=== PATIENT | male | born 1995 | race Caucasian/White ===

== ENCOUNTER 2018-10-11 23:25 | Emergency (ER) | payer BC ==
[2018-10-11] MEDS ORDERED: Diphtheria,Pertussis(Acell),Tetanus Vaccine 0.5 ML Syringe IM ONE (23:48)
--- NOTE | 2018-10-11 23:48 | EDM.PDOC ---
ED HPI GENERAL MEDICAL PROBLEM - General Chief Complaint: Laceration Stated Complaint: LEFT FINGER LACERATION Time Seen by Provider: 10/11/18 23:41 - History of Present Illness INITIAL COMMENTS - FREE TEXT/NARRATIVE: 23-year-old male presents emergency room with laceration on his left ring finger This occurred shortly before arrival the patient was cutting meat inadvertently cut the end of his finger. Patient has never had a tetanus shot as he was homeschooled. He denies any other injuries past medical history is unremarkable allergies: None Left Finger-Little Pain Score (Numeric/FACES): 5 - Related Data Allergies Allergy/AdvReac Type Severity Reaction Status Date / Time No Known Allergies Allergy Verified 10/11/18 23:49 Home Meds: Home Meds . [No Known Home Meds] 10/11/18 [History] ED ROS GENERAL - Review of Systems Review Of Systems: See Below Constitutional: Reports: No Symptoms Respiratory: Reports: No Symptoms Cardiovascular: Reports: No Symptoms GI/Abdominal: Reports: No Symptoms ED EXAM, SKIN/RASH Exam: See Below Exam Limited By: No Limitations General Appearance: Alert, No Apparent Distress Respiratory/Chest: No Respiratory Distress, Lungs Clear, Normal Breath Sounds Cardiovascular: Normal Peripheral Pulses, Regular Rate, Rhythm, No Edema, No Murmur Extremities: Other (Examination of his left hand shows a 1 cm laceration distal end of the pinky finger radial aspect from the nail extending to the palmar surface does not appear to be too deep it is having some bleeding.) ED SKIN PROCEDURES - Laceration/Wound Repair Left Digit - 5th (Baby) Lac/Wound length In cm: 1 Distal NVT: Neuro & Vascular Intact Anesthetic Type: Digital Local Anesthesia - Lidocaine (Xylocaine): 1% Plain Local Anesthetic Volume: 2cc Skin Prep: Chlorhexidine (Hibiciens), Saline Exploration/Debridement/Repair: Wound Explored, In a Bloodless Field, Explored to Base Closed with: Sutures Suture Size: 3-0 # of Sutures: 3 Suture Type: Nylon Tetanus Status Addressed: Yes (This is updated) Complications: No Progress/Comments: Patient tolerated procedure well no complications good wound approximation bleeding controlled Course - Vital Signs Last Recorded V/S: Last Vital Signs Temp 36.7 C 10/11/18 23:37 Pulse 74 10/11/18 23:37 Resp 18 10/11/18 23:37 BP 147/88 H 10/11/18 23:37 Pulse Ox 100 10/11/18 23:37 - Orders/Labs/Meds Orders: Active Orders 24 hr Category Date Time Status Vaccines to be Administered [RC] PER UNIT ROUTINE Care 10/11/18 23:48 Active Meds: Medications Discontinued Medications Generic Name Dose Route Start Last Admin Trade Name Norma PRN Reason Stop Dose Admin Diphtheria/Tetanus/Acell Pertussis 0.5 ml 10/11/18 23:48 Adacel IM 10/11/18 23:49 .ONCE ONE Lidocaine HCl 5 ml 10/11/18 23:48 Xylocaine-Mpf 1% INJECT 10/11/18 23:49 ONETIME ONE Lidocaine HCl Confirm 10/11/18 23:52 Xylocaine 1% Administered 10/11/18 23:53 Dose 10 ml .ROUTE .STK-MED ONE Lidocaine HCl 10 ml 10/11/18 23:54 Xylocaine 1% INJECT 10/11/18 23:55 ONETIME ONE Departure - Departure Time of Disposition: 00:18 Disposition: Home, Self-Care 01 Clinical Impression: Laceration of left little finger - Discharge Information Referrals: PCP,None [Primary Care Provider] - Forms: ED Department Discharge Additional Instructions: Return to the emergency room with any questions problems or concerns. Keep wound clean and dry for the next 48 hours after 48 hours he can let water gently rubbing the area gently dabbed dry wear the splint for at least one week. Suture removal in 12 days. Use great caution after the sutures are removed as to not catch the skin on something potentially tearing open. Return to emergency room with any signs symptoms or concerns of infection - My Orders Last 24 Hours: My Active Orders 10/11/18 23:48 Vaccines to be Administered [RC] PER UNIT ROUTINE - Assessment/Plan Last 24 Hours: My Active Orders 10/11/18 23:48 Vaccines to be Administered [RC] PER UNIT ROUTINE
[2018-10-11] MEDS ORDERED: Lidocaine 1% 10 ML MDV ONE (23:52)
[2018-10-11] MEDS ORDERED: Lidocaine 1% 10 ML MDV INJECT ONE (23:54)
== END 2018-10-12 00:29 | disposition home or self-care (01) ==
LOC: JD.ED 23:25
DX: S61.215A Laceration without foreign body of left ring finger without damage to nail, initial encounter (principal); Z23 Encounter for immunization; W26.8XXA Contact with other sharp object(s), not elsewhere classified, initial encounter
CPT/HCPCS: 12001; 90471; 90700; 99282; J2001